=== PATIENT | female | born 1985 | race Caucasian/White ===

== ENCOUNTER 2024-07-19 06:26 | Emergency (ER) | payer OTHER ==
[2024-07-19 07:39] LABS: Specific Gravity 1.016 (1.005-1.030)
[2024-07-19 07:43] LABS: Absolute Basophils 0.1 K/uL (0-0.5); Absolute Eosinophils 0.2 K/uL (0-0.5); Absolute Lymphocytes (CBC) 1.6 K/uL (0.7-4.9); Absolute Monocytes 0.7 K/uL (0.1-1.3); Absolute Neutrophil 8.9 K/uL (1.8-8.0); Basophils % 0.9 % (0-1.3); Eosinophils % 1.7 % (0-4.4); Hematocrit 44.1 % (36.0-45.0); Hemoglobin 15.2 g/dL (12.0-15.0); Lymphocytes % 13.8 % (15.3-44.8); MCHC 34.5 g/dL (32.0-36.0); MCV 81.4 fL (80-100); Monocytes % 5.7 % (3.3-12.3); Neutrophils % 77.9 % (41.7-73.7); Platelets 360 thou/uL (152-406); RBC Red Blood Cell Count 5.41 M/uL (3.86-4.86); Red Cell Distribution Width 13.5 % (12.1-15.2)
[2024-07-19 07:44] LABS: Specific Gravity 1.016 (1.005-1.030); Urine Bilirubin Negative (Negative); Urine Blood 3+ (Negative); Urine Clarity Turbid (Clear); Urine Color Yellow (Yellow); Urine Glucose Negative (Negative); Urine Ketones 1+ (Negative)
[2024-07-19 07:45] LABS: Urine Microscopic Reflex YN NO UMIC; Urine Nitrite Negative (Negative); Urine Protein 1+ (Negative); Urine Urobilinogen Normal mg/dL (0.2-1.0)
[2024-07-19 07:46] LABS: Albumin 3.9 g/dL (3.4-5.0); Albumin/Globulin Ratio 1.1 (1.1-1.8); Anion Gap 14.6 mEq/L (5.0-15.0); Globulin 3.7 g/dL (2.3-3.5); Potassium 3.6 mEq/L (3.5-5.1); Protein, Total 7.6 g/dL (6.4-8.2)
--- NOTE | 2024-07-19 08:20 | RAD REPORT ---
EXAMINATION: CT ABDOMEN AND PELVIS WITH CONTRAST CLINICAL INDICATION: Abdominal pain TECHNIQUE: CT abdomen and pelvis was performed, after the administration of 100 cc Isovue-300.. Sagit nicky and coronal reconstructions were obtained. One or more of the following dose reduction techniques were used: Automated exposure control, adjustment of the mA and kV according to patient si ze, and iterative reconstruction. Unless otherwise specified, incidental findings do not require dedicated imaging follow-up. [id number]. Oral contrast was not given which limits evaluation of bowel and appendix. COMPARISON: .None FINDINGS: Multiple hepatic lobe density and low to intermediate density lesions. They vary in size from a few m illimeters to 13 mm. The spleen, pancreas, adrenals and left kidney unremarkable. Small right renal cyst. Normal appendix. Small umbilical hernia Bilobed right ovarian mass 7.8 cm. One component has a Hounsfield unit 6. The other component has a H ounsfield unit 36. No evidence of diverticulitis. 3 mm calcified granuloma right lung. : IMPRESSION: 7.8 cm bilobed complex cystic mass right ovary. This could be benign or indicate an ovarian cystadeno ma. Multiple hepatic masses most likely a combination of simple and benign complex cysts. Follow-up hepat ic ultrasound in 3 months recommended for reevaluation.
--- NOTE | 2024-07-19 08:29 | ER ---
Nurse's Notes [facility] Name: Yarelis Cruz Age: 39 yrs Sex: Female : 1985 Arrival Date: 07/19/2024 Time: 06:26 Bed 7 Private MD: Diagnosis: Complex ovarian cyst right side, abdominal pain Presentation: 07/19 06:45 Chief complaint: Patient states: c/o RLQ pain, nausea and vomiting x2 hours. al5 Coronavirus screen: At this time, the client does not indicate any symptoms associated with coronavirus-19. Ebola Screen: No symptoms or risks identified at this time. Initial Sepsis Screen: Does the patient meet any 2 criteria? No. Patient's initial sepsis screen is negative. Does the patient have a suspected source of infection? No. Patient's initial sepsis screen is negative. Risk Assessment: Do you want to hurt yourself or someone else? Patient reports no desire to harm self or others. Onset of symptoms was July 19, 2024. 06:45 Method Of Arrival: Ambulatory al5 06:45 Acuity: SAVANNAH 3 al5 Triage Assessment: 06:46 General: Appears in no apparent distress. uncomfortable, Behavior is cooperative, al5 restless. Pain: Complains of pain in right lower quadrant. EENT: No signs and/or symptoms were reported regarding the EENT system. Neuro: Level of Consciousness is awake, alert, obeys commands, Oriented to person, place, time, situation. Cardiovascular: Capillary refill < 3 seconds. Respiratory: Airway is patent Respiratory effort is even, unlabored, Respiratory pattern is regular, symmetrical. GI: Abdomen is flat, non-distended, Bowel sounds present X 4 quads. Abd is soft X 4 quads Abdomen is tender to palpation in right lower quadrant Reports lower abdominal pain, nausea, vomiting. : No signs and/or symptoms were reported regarding the genitourinary system. Derm: Skin is intact, is healthy with good turgor, Skin is dry, Skin is normal, Skin temperature is cool. Musculoskeletal: No signs and/or symptoms reported regarding the musculoskeletal system. 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 - Infectious Disease History:: Denies. - Social history:: Smoking status: Patient denies any tobacco usage or history of. Screenin:48 [facility] ED Fall Risk Assessment (Adult) History of falling in the last 3 months, al5 including since admission No falls in past 3 months (0 pts) Confusion or Disorientation No (0 pts) Intoxicated or Sedated No (0 pts) Impaired Gait No (0 pts) Mobility Assist Device Used No (0 pt) Altered Elimination No (0 pt) Score/Fall Risk Level 0 - 2 = Low Risk Oriented to surroundings, Maintained a safe environment, Hourly rounding (assess needs \T\ fall precautionary measures) done. Abuse screen: Denies threats or abuse. Denies injuries from another. Nutritional screening: No deficits noted. Tuberculosis screening: No symptoms or risk factors identified. Assessment: 06:47 Reassessment: see triage assessment. al5 07:13 General: Appears uncomfortable, Behavior is calm, cooperative, appropriate for age. ap3 Pain: Complains of pain in right low back and right lower quadrant. Neuro: Level of Consciousness is awake, alert, obeys commands, Oriented to person, place, time, situation, Appropriate for age. Cardiovascular: Patient's skin is warm and dry. Respiratory: Airway is patent Respiratory effort is even, unlabored, Respiratory pattern is regular, symmetrical. GI: Reports lower abdominal pain, nausea, vomiting. 08:52 Reassessment: Patient appears in no apparent distress at this time. Patient and/or ph family updated on plan of care and expected duration. Pain level reassessed. Patient is alert, oriented x 3, equal unlabored respirations, skin warm/dry/pink. Vital Signs: 06:45 BP 131 / 102; Pulse 65; Resp 18; Temp 97.6; Pulse Ox 100% on R/A; Weight 81.65 kg; al5 Height 5 ft. 3 in. ; Pain 9/10; 07:50 BP 106 / 57; Pulse 67; Pulse Ox 95% on R/A; ap3 08:52 BP 100 / 69; Pulse 68; Resp 18; Temp 97.5; Pulse Ox 98% on R/A; ph 06:45 Body Mass Index 31.89 (81.65 kg, 160.02 cm) al5 06:45 Pain Scale: Adult al5 ED Course: 06:27 Patient arrived in ED. jj6 06:42 Narda Nguyen, RN is Primary Nurse. kd3 06:45 Triage completed. al5 06:47 Arm band placed on right wrist. Patient placed in the treatment room, in view of staff al5 members, on pulse oximetry. 06:48 Patient has correct armband on for positive identification. Bed in low position. Call al5 light in reach. Side rails up X2. Provided Education on: plan of care. 06:48 No provider procedures requiring assistance completed. al5 06:48 Inserted saline lock: 20 gauge in right antecubital area, using aseptic technique. al5 Blood collected. Flushed with 10 mL NS. 07:00 Gin Chowdhury MD is Attending Physician. sp3 07:34 Initial lab(s) drawn, by me, sent to lab. Urine collected: clean catch specimen, flor kb4 colored. 08:04 CT Abd/Pelvis - IV Contrast Only In Process Unspecified. EDMS 08:53 IV discontinued, intact, bleeding controlled, No redness/swelling at site. Pressure ph dressing applied. Administered Medications: No medications were administered Medication: 06:48 VIS not applicable for this client. al5 Outcome: 08:29 Discharge ordered by . sp3 08:53 Discharged to home ambulatory, with family, ph 08:53 Condition: good 08:53 Discharge instructions given to patient, Instructed on discharge instructions, follow up and referral plans. Demonstrated understanding of instructions, follow-up care, 08:54 Patient left the ED. ph Signatures: Dispatcher [employer] EDMA Hortensia Sibley RN RN Rowena Acosta RN RN ap3 Gin Chowdhury MD MD sp3 Kirsten ySed j6 Narda Nguyen, RN RN kd3 Rowena Reid RN RN al5 Dasha Malone kb4 Corrections: (The following items were deleted from the chart) 06:46 06:45 Allergies: No Known Allergies; al5 al5
--- NOTE | 2024-07-19 08:29 | EDPHYS ---
Physician Documentation [facility] Name: Yarelis Cruz Age: 39 yrs Sex: Female : 1985 Arrival Date: 07/19/2024 Time: 06:26 Bed 7 Private MD: ED Physician Gin Chowdhury HPI: 07/19 07:30 This 39 yrs old Female presents to ER via Ambulatory with complaints of Fever, sp3 Nausea/Vomiting, RT QUAD ABD PAIN. 07:30 39-year-old female with no past medical history or past surgical history presents with sp3 right lower quadrant abdominal pain radiating to the back, vomiting over the last 3 hours. Patient denies any fever, neck pain, chest pain, shortness of breath, fever, diarrhea, extremity pain, rash, syncope, near syncope, known sick contacts, travel history, prolonged immobilization, or any other signs or symptoms on ROS at this time.. 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 - Infectious Disease History:: Denies. - Social history:: Smoking status: Patient denies any tobacco usage or history of. ROS: 07:31 Constitutional: Negative for fever, chills, and weight loss, Eyes: Negative for injury, sp3 pain, redness, and discharge, ENT: Negative for injury, pain, and discharge, Neck: Negative for injury, pain, and swelling, Cardiovascular: Negative for chest pain, palpitations, and edema, Respiratory: Negative for shortness of breath, cough, wheezing, and pleuritic chest pain, Back: Negative for injury and pain, MS/Extremity: Negative for injury and deformity, Skin: Negative for injury, rash, and discoloration, Neuro: Negative for headache, weakness, numbness, tingling, and seizure, Psych: Negative for depression, anxiety, suicide ideation, homicidal ideation, and hallucinations, Allergy/Immunology: Negative for hives, rash, and allergies, Endocrine: Negative for neck swelling, polydipsia, polyuria, polyphagia, and marked weight changes, Hematologic/Lymphatic: Negative for swollen nodes, abnormal bleeding, and unusual bruising, 07:31 All other systems are negative, Exam: 07:31 Constitutional: This is a well developed, well nourished patient who is awake, alert, sp3 and in no acute distress. Head/Face: Normocephalic, atraumatic. Eyes: Pupils equal round and reactive to light, extra-ocular motions intact. Lids and lashes normal. Conjunctiva and sclera are non-icteric and not injected. Cornea within normal limits. Periorbital areas with no swelling, redness, or edema. ENT: Nares patent. No nasal discharge, no septal abnormalities noted. External auditory canals are clear. Oropharynx with no redness, swelling, or masses, exudates, or evidence of obstruction, uvula midline. Mucous membranes moist. Neck: Trachea midline, no thyromegaly or masses palpated, and no cervical lymphadenopathy. Supple, full range of motion without nuchal rigidity, or vertebral point tenderness. No Meningismus. Chest/axilla: Normal chest wall appearance and motion. Nontender with no deformity. No lesions are appreciated. Cardiovascular: Regular rate and rhythm with a normal S1 and S2. No gallops, murmurs, or rubs. Normal PMI, no JVD. No pulse deficits. Respiratory: Lungs have equal breath sounds bilaterally, clear to auscultation and percussion. No rales, rhonchi or wheezes noted. No increased work of breathing, no retractions or nasal flaring. Back: No spinal tenderness. No costovertebral tenderness. Full range of motion. Skin: Warm, dry with normal turgor. Normal color with no rashes, no lesions, and no evidence of cellulitis. MS/ Extremity: Pulses equal, no cyanosis. Neurovascular intact. Full, normal range of motion. Neuro: Awake and alert, GCS 15, oriented to person, place, time, and situation. Cranial nerves II-XII grossly intact. Motor strength 5/5 in all extremities. Sensory grossly intact. Cerebellar exam normal. Normal gait. Psych: Awake, alert, with orientation to person, place and time. Behavior, mood, and affect are within normal limits. 07:31 Abdomen/GI: Right lower quadrant abdominal pain to palpation without peritoneal signs, rebound or guarding. No CVA tenderness on the right., Vital Signs: 06:45 BP 131 / 102; Pulse 65; Resp 18; Temp 97.6; Pulse Ox 100% on R/A; Weight 81.65 kg; al5 Height 5 ft. 3 in. ; Pain 9/10; 07:50 BP 106 / 57; Pulse 67; Pulse Ox 95% on R/A; ap3 08:52 BP 100 / 69; Pulse 68; Resp 18; Temp 97.5; Pulse Ox 98% on R/A; ph 06:45 Body Mass Index 31.89 (81.65 kg, 160.02 cm) al5 06:45 Pain Scale: Adult al5 MDM: 07:07 Medical Screening Exam initiated sp3 07:31 Data reviewed: vital signs, nurses notes, lab test result(s), radiologic studies. ED sp3 course: 39-year-old female with right lower quad abdominal pain. Differential diagnosis includes appendicitis, colitis, functional abdominal pain, constipation, biliary pathology, UTI/pyelonephritis spectrum, kidney stone/ureterolithiasis spectrum, musculoskeletal pain, among others. I am not highly suspicious of aortic pathology, other vascular pathology, sepsis, shock or any other critical process. Workup include general labs and CT scan of the abdomen pelvis with IV contrast. Patient states her symptoms are slightly improving and she currently declined pain or nausea medication. Disposition pending workup and patient course with probable discharge if workup negative.. 08:27 ED course: CT scan demonstrates complex cystic mass including cystadenoma versus sp3 complex cyst. Appendix and other structures are normal. Patient's pain is controlled. Blood pressure is now normal. I have advised patient she needs close follow-up within the next 2 to 3 weeks with gynecology for continued monitoring. I have also educated patient on signs and symptoms of ovarian torsion and she understands to return if she gets sudden pain. Patient acknowledged as well as mother who was in the room and both state that they will seek outpatient consultation immediately. [id number] meds for continued symptoms.. 07/19 07:09 Order name: CBC with Diff; Complete Time: 07:54 sp3 07/19 07:09 Order name: CMP; Complete Time: 07:54 sp3 07/19 07:09 Order name: Lipase; Complete Time: 07:54 sp3 07/19 07:09 Order name: Test, Urine; Complete Time: 07:54 sp3 07/19 07:09 Order name: Urinalysis w/ reflexes; Complete Time: 07:54 sp3 07/19 07:09 Order name: Lactate w/ 2H reflex if indic.; Complete Time: 07:54 sp3 07/19 07:09 Order name: CT Abd/Pelvis - IV Contrast Only; Complete Time: 08:22 sp3 07/19 07:09 Order name: IV Saline Lock; Complete Time: 07:15 sp3 07/19 07:09 Order name: Labs collected and sent; Complete Time: 07:34 sp3 07/19 07:09 Order name: NPO; Complete Time: 07:15 sp3 Administered Medications: No medications were administered Disposition Summary: 07/19/24 08:29 Discharge Ordered Notes: Location: Home sp3 Condition: Stable sp3 Diagnosis - Complex ovarian cyst right side, abdominal pain sp3 Followup: sp3 - With: Private Physician - When: Upon discharge from the Emergency Department - Reason: Continuance of care Discharge Instructions: - Discharge Summary Sheet sp3 - Ovarian Cyst sp3 Forms: - Medication Reconciliation Form sp3 - Antibiotic Education sp3 - Prescription Opioid Use sp3 - Patient Portal Instructions sp3 - Leadership Thank You Letter sp3 Signatures: Dispatcher [employer] EDMS Gin Chowdhury MD MD sp3 Rowena Reid RN RN al5 Corrections: (The following items were deleted from the chart) 06:46 06:45 Allergies: No Known Allergies; al5 al5 07:09 07:09 CBC+H.LAB.BRZ ordered. EDMS EDMS 07:09 07:09 COMPREHENSIVE METABOLIC PANEL+C.LAB.BRZ ordered. EDMS EDMS 07:09 07:09 LIPASE+C.LAB.BRZ ordered. EDMS EDMS 07:09 07:09 Test, Urine+UC.LAB.BRZ ordered. EDMS EDMS 07:09 07:09 Urinalysis+U.LAB.BRZ ordered. EDMS EDMS 07:09 07:09 LACTATE+C.LAB.BRZ ordered. EDMS EDMS 07:09 07:09 Abdomen Pelvis W Con+CT.RAD.BRZ ordered. EDMS EDMS
[2024-07-19 09:28] VITALS: BP 100/69; TEMP 97.5; O2SAT 98
== END 2024-07-19 08:54 | disposition home or self-care (01) ==
LOC: ER 06:26
DX: N83.291 Other ovarian cyst, right side (principal); R11.2 Nausea with vomiting, unspecified
CPT/HCPCS: 85025; 36415; 81025; 83605; 81003; 83690; 80053; 74177; Q9967